=== PATIENT | male | born 1985 ===

== ENCOUNTER 2019-05-11 21:40 | Emergency (ER) | payer MEDICAID ==
[~2019-05-11] VITALS: Ht 182.9 cm; Wt 77.1 kg
[2019-05-11 22:10] VITALS: BP 125/72
[2019-05-11] MEDS ORDERED: LIDOCAINE /MPF 1% VIAL 5 ML VIAL ONE (22:25)
[2019-05-11] MEDS ORDERED: CEFTRIAXONE 1 G VIAL ONE (22:25)
[2019-05-11] MEDS ORDERED: AZITHROMYCIN 250 MG TABLET ONE (22:26)
[2019-05-11] MEDS ORDERED: CEFTRIAXONE 1 G VIAL IM ONE (22:30)
[2019-05-11] MEDS ORDERED: AZITHROMYCIN 250 MG TABLET PO ONE (22:30)
== END 2019-05-11 22:48 | disposition home or self-care (01) ==
LOC: ER 21:40
DX: A63.8 Other specified predominantly sexually transmitted diseases (principal); F41.9 Anxiety disorder, unspecified; F32.9 Major depressive disorder, single episode, unspecified
CPT/HCPCS: 87491; 87591; 96372; 99283; J0696; J3490